=== PATIENT | male | born 1985 | race Caucasian/White ===

== ENCOUNTER 2025-08-31 21:49 | Inpatient (IN) | payer MEDICAID ==
[~2025-08-31] VITALS: Ht 177.8 cm; Wt 110.0 kg
[2025-08-31 22:21] LABS: Hematocrit 40.3 % (41.0-53.0); Hemoglobin 13.6 g/dL (13.5-17.5); Mean Corpuscular Hemoglobin 29.0 pg (28.0-32.0); Mean Corpuscular Volume 85.8 fL (80.0-100.0); Nucleated Red Blood Cells % 0.1 %
[2025-08-31 22:36] LABS: INR 1.07 (0.9-1.15); Partial Thromboplastin Time 29.8 SEC (24.5-34.5); Prothrombin Time 11.3 sec (9.3-11.8)
--- NOTE | 2025-08-31 22:36 | DVH ---
CLINICAL HISTORY: HIGH BLOOD PRESSURE TECHNIQUE: Single view of the chest was obtained. COMPARISON: None FINDINGS: The heart size and pulmonary vasculature are normal. The lungs are clear. IMPRESSION: NO ACUTE CARDIOPULMONARY PROCESS.
[2025-08-31 22:42] LABS: Alanine Aminotransferase 10 U/L (7-40); Albumin 4.4 g/dL (3.2-4.8); Alkaline Phosphatase 56 U/L (46-116); Anion Gap 10 (5-15); BUN/Creatinine Ratio 7.6 (10.0-20.0); Bilirubin, Total 0.4 mg/dL (0.2-1.0); Calcium 8.9 mg/dL (8.7-10.4); Carbon Dioxide 26 mmol/L (20-31); Glucose 100 mg/dL (74-106); Potassium 3.7 mmol/L (3.5-5.1); Sodium 143 mmol/L (136-145); Total Protein 7.0 g/dL (5.7-8.2)
[2025-08-31 22:52] LABS: Blood Urea Nitrogen 9 mg/dL (9-23); Chloride 107 mmol/L (98-107)
[2025-08-31] MEDS: NITROGLYCERIN 0.4 MG SL TAB SL ONE (23:05)
--- NOTE | 2025-08-31 23:13 | ED.PDOC ---
HPI Comments HPI: Poor Historian. 40-year-old male presents to emergency depart for evaluation elevated blood pressure. Patient has known history of hypertension but has been without medication at least for nine months. Patient had a dental appointment yesterday was noted that he was hypertensive. He was sent from the dentist's office to a local ER at [facility] where they prescribed him losartan 50 mg. He says he has been taking the medicine and checking his blood pressure at home however his blood pressure has been greater than 200 despite his medications. Patient has absolutely no symptoms denies any chest pain shortness of breath or even headache or dizziness or nausea or vomiting or any other symptoms. The num bers alarmed him and he decided to seek medical attention regarding the blood pressure numbers on the machine. Patient denies any use of drugs but he does they Past Medical History: Hypertension Past Surgical History: Denies any Vaping. REVIEW OF SYSTEMS: CONSTITUTIONAL: Denies acute: fever, diaphoresis, chills, generalized weakness. HEAD: Denies acute: headache, photophobia Eyes: Denies acute: Double vision, vision loss, eye pain, eye discharge. EARS: Denies acute: tinnitus, hearing loss, ear discharge, ear pain, THROAT: Denies acute: sore throat, swelling, difficulty swallowing , pain with swallowing, change in voice. NECK: Denies acute: neck pain, neck swelling, stiff neck. HEART: Denies acute : chest pain, palpitations, LUNGS: Denies acute: SOB, wheezing, cough, hemoptysis ABDOMEN: Denies acute: abdominal pain, Nausea, Vomiting, diarrhea, melena , hematemesis, hematochezia SKIN: Denies acute: rash, redness, lesions, itchiness. EXTREMITIES: Denies acute: calf pain, numbness, tingling, weakness, denies pain in extremity. Denies acute: Low back pain. Neuro: Denies acute: focal neurological deficit, motor or sensory focal neurological deficit, tremors, seizure like activity, confusion, dizziness, change in mental status, loss of bowel or bladder function, cauda equina like symptoms. : Denies acute: dysuria, hematuria, flank pain, increase in urinary frequency. PSYCH: Denies acute: hallucination, suicidal ideation, homicidal ideation. PHYSICAL EXAM: General: --no------acute distress, awake and alert. Head: normocephalic, atraumatic. Neck: supple, trachea is midline, no swelling. Throat: Normal phonation. Eyes:, no erythema, no purulent discharge, no proptosis, no icterus. Heart: regular rate, regular rhythm, no significant murmur appreciated. Lungs: no apparent respiratory distress, Able to speak in full sentences. No wheezing, no rhonchi, no crackles. No stridors Clear to auscultation bilaterally. Abdomen: non tender to palpation, non distended, soft, no guarding, no rebound, + bowel sounds. Neuro: Awake, Alert, oriented to name, self, situation, follows commands GCS=15. Speech is normal. Skin: no petechia, no purpura, no cyanosis, non-pale, not jaundice. Lower extremities: --no - Pitting edema no deformity, no focal swelling, no calf TTP. Makes eye contact. moves all four extremities. Face: no apparent facial droop. Ambulating in the ED independently. ED COURSE: DISCLAIMER: This medical document was created using an electronic medical record system with voice recognition software and computerized dictation system. Although this document has been carefully reviewed, there might still be some phonetic and typographical errors. Occasional wrong-word or "sound-alike" substitutions may have occurred due to the inherent limitations of voice recognition software. These areas are purely typographical due to imperfections of the software programs and do not reflect any compromise in the patient's medical care. Please read the chart carefully and recognize, using context, where these substitutions have occurred. Chief Complaint: High Blood Pressure Time Seen by MD: 22:25 Reviewed Notes: Medications, Allergies Allergies: Coded Allergies: NO KNOWN ALLERGIES (Unverified , 08/31/25) Information Source: Patient Mode of Arrival: Ambulatory Was a procedure done? Was a procedure done?: No CP Differential Dx Differential Diagnosis: N/A Differential Diagnosis: Other (DDX include renal disease, thyroid disease, electrolyte abnormality, increased salt intake, medications non-compliance, undiagnosed HTN, Hypertensive crisis, hypertensive urgency., drug toxicity.) X-Ray, Labs, Meds, VS Vital Signs Date Time Temp Pulse Resp B/P (MAP) Pulse Ox O2 Delivery O2 Flow Rate FiO2 09/01/25 01:20 171/103 09/01/25 00:50 81 180/110 (133) 99 09/01/25 00:21 86 207/126 08/31/25 23:54 207/126 (153) 08/31/25 23:14 148/109 08/31/25 23:12 148/109 (122) 08/31/25 23:05 184/120 (141) 08/31/25 22:02 80 08/31/25 21:51 97.6 85 14 214/137 98 97.6 Lab Test 08/31/25 22:16 Range/Units White Blood Count 7.2 4.4-10.8 10^3/uL Red Blood Count 4.70 4.5-5.90 10^6/uL Hemoglobin 13.6 13.5-17.5 g/dL Hematocrit 40.3 L 41.0-53.0 % Mean Corpuscular Volume 85.8 80.0-100.0 fL Mean Corpuscular Hemoglobin 29.0 28.0-32.0 pg Mean Corpuscular Hemoglobin Concent 33.8 32.0-36.0 g/dL Red Cell Distribution Width 13.2 11.8-14.3 % Platelet Count 245 140-450 10^3/uL Mean Platelet Volume 6.9 6.9-10.8 fL Neutrophils (%) (Auto) 63.8 37.0-80.0 % Lymphocytes (%) (Auto) 28.5 10.0-50.0 % Monocytes (%) (Auto) 6.7 0.0-12.0 % Eosinophils (%) (Auto) 0.8 0.0-7.0 % Basophils (%) (Auto) 0.2 0.0-2.0 % Neutrophils # (Auto) 4.6 1.6-8.6 10 ^3/uL Lymphocytes # (Auto) 2.0 0.4-5.4 10 ^3/uL Monocytes # (Auto) 0.5 0-1.3 10 ^3/uL Eosinophils # (Auto) 0.1 0-0.8 10 ^3/uL Basophils # (Auto) 0 0-0.2 10 ^3/uL Nucleated Red Blood Cells 0.1 % Prothrombin Time 11.3 9.3-11.8 sec Prothrombin Time INR 1.07 0.9-1.15 Activated Partial Thromboplast Time 29.8 24.5-34.5 SEC Sodium Level 143 136-145 mmol/L Potassium Level 3.7 3.5-5.1 mmol/L Chloride Level 107 98-107 mmol/L Carbon Dioxide Level 26 20-31 mmol/L Anion Gap 10 5-15 Blood Urea Nitrogen 9 9-23 mg/dL Creatinine 1.18 0.700-1.30 mg/dL Glomerular Filtration Rate Calc 79 >90 mL/min BUN/Creatinine Ratio 7.6 L 10.0-20.0 Serum Glucose 100 74-106 mg/dL Calcium Level 8.9 8.7-10.4 mg/dL Total Bilirubin 0.4 0.2-1.0 mg/dL Aspartate Amino Transferase (AST) 19 13-40 U/L Alanine Aminotransferase (ALT) 10 7-40 U/L Alkaline Phosphatase 56 46-116 U/L Troponin I High Sensitivity 3 L </=54 ng/L B-Type Natriuretic Peptide 25.74 0-100 pg/mL Total Protein 7.0 5.7-8.2 g/dL Albumin 4.4 3.2-4.8 g/dL Current Medications Medications (Trade) Dose Ordered Sig/Fina Route Start Time Stop Time Status Last Admin Hydralazine HCl (Apresoline Injection) 5 mg ONCE ONCE IV 08/31/25 22:15 09/01/25 01:02 DC 08/31/25 23:14 Acetaminophen (Tylenol Tablet) 650 mg ONCE ONCE PO 08/31/25 23:15 09/01/25 01:02 DC 08/31/25 23:17 Labetalol HCl (Labetalol HCl) 10 mg ONCE ONCE IV 09/01/25 00:00 09/01/25 01:02 DC 09/01/25 00:21 Nicardipine/ Sodium Chloride 200 ml @ 50 mls/hr Q4H IV 09/01/25 01:00 09/01/25 01:[address] [address] Ph: [phone] DIAGNOSTIC IMAGING Diagnostic Imaging Report : [id number] Signed PATIENT: ANTONY GUADARRAMA ACCT: [id number] UNIT: [id number] : 1985 LOC: ER ROOM / BED: / AGE / SEX: 40 / M ADM STATUS: REG ER SERVICE 99 ORDERING PHYSICIAN: GWENDOLYN ALAN DO PROCEDURE(s): CXRP - CHEST PORTABLE REASON: HIGH BLOOD PRESSURE ORDER NUMBER(s): [id number], ACCESSION NUMBER(s): [id number] CLINICAL HISTORY: HIGH BLOOD PRESSURE TECHNIQUE: Single view of the chest was obtained. COMPARISON: None FINDINGS: The heart size and pulmonary vasculature are normal. The lungs are clear. IMPRESSION: NO ACUTE CARDIOPULMONARY PROCESS. ATED BY: DIPIKA JENNINGS MD DICTATED DATE/TIME: 08/31/252233 SIGNED BY: DIPIKA JENNINGS MD SIGNED DATE/TIME: 08/31/252233 CC: Time of 1ST Reevaluation: 02:09 Reevaluation 1ST: Unchanged Patient Education/Counseling: Diagnosis, Treatment Family Education/Counseling: Other Comments MDM: patient presented with the above HPI.---hypertension evaluation---workup was initiated. patient was found with the above mentioned diagnosis. the following medications were ordered: please refer to order lists of meds and tests obtained by myself Dr. Alan. Patient ED course and VS have been stabilized. Patient has been reassessed in the ED and remained in a stable condition. Pertinent incidental findings were discussed with the patient and/or family. Patient/family voices understanding and is agreeable with plan. Patient has been observed in the ED adequate length of time to insure improvement/stability. Escalation of care considered: Consideration of escalation to observation or admission Patient was given nitroglycerin sublingual and hydralazine IV. Patient was reassessed and he continues to be hypertensive in the 200s systolically. Patient was started on nicardipine drip. Patient was ADMITTED to the medicine team for further evaluation and treatment of their presentation. All the reports of any imaging studies that were ordered by myself were reviewed by myself. Departure 1 Departure Time of Disposition: 23:13 Impression: Primary Impression: Hypertensive crisis Disposition: ADMITTED INPATIENT Admit to: Tele Condition: Guarded Discharged With: Self Critical Care Note Critical Care Time?: Yes (45 min-critical care time only) Heart Score Heart Score: Heart Score Response (Comments) Value History Slightly Suspicious 0 EKG Normal 0 Age <45 0 Risk Factors 1 or 2 risk factors 1 Troponin Normal limit 0 Total 1 GWENDOLYN ALAN DO Aug 31, 2025 23:13
[2025-08-31] MEDS: hydrALAZINE HCL 20 MG/ML VL IV ONE (23:14)
[2025-08-31] MEDS: ACETAMINOPHEN 325 MG TAB PO ONE (23:17)
[2025-09-01] VITALS (54 sets, daily range): BP systolic 121–174; BP diastolic 75–111; PULSE 72–116; RESP 9–91; TEMP 98.3–98.6; O2SAT 93–98
[2025-09-01] MEDS: LABETALOL HCL 20 MG/4 ML VL IV ONE ×2 (00:21→22:36)
[2025-09-01] MEDS ORDERED: ONDANSETRON HCL 4 MG/2 ML VIAL IV PRN (01:45)
[2025-09-01] MEDS ORDERED: NITROGLYCERIN 0.4 MG SL TAB SL PRN (01:45)
[2025-09-01] MEDS ORDERED: MORPHINE SULFATE INJ 2 MG/ml SYRG IV PRN (01:45)
--- NOTE | 2025-09-01 02:08 | DVHHP2 ---
History of Present Illness Reason for Visit: High blood pressure History of Present Illness 40-year-old male presents for evaluation of elevated blood pressure. Patient reports a history of hypertension but has not taken his losartan in over a year. Yesterday he presented for dental work and his blood pressure was elevated in the 200s when his vital signs were checked. He denies chest pain, shortness for breath, dizziness, nausea or headache. Past Medical History Hypertension Past Surgical History Denies Family History Noncontributory Smoke: No (Vaping) ALCOHOL: none Drugs: None Lives: with Family Review of Systems Review of Systems Review of systems are currently negative otherwise addressed in HPI. Allergies: Coded Allergies: NO KNOWN ALLERGIES (Unverified , 08/31/25) Medications Current Medications Medications Dose Ordered Sig/Fina Route Start Time Stop Time Status Last Admin Dose Admin Nicardipine/ Sodium Chloride 200 ml @ 50 mls/hr Q4H IV 09/01/25 01:00 09/01/25 01:20 50 MLS/HR Ondansetron HCl 4 mg Q4HP PRN IV 09/01/25 01:45 Acetaminophen 650 mg Q6HP PRN PO 09/01/25 01:45 Nitroglycerin 0.4 mg Q5MINP PRN SL 09/01/25 01:45 Morphine Sulfate 2 mg Q30M PRN IV 09/01/25 01:45 Exam Vital Signs Vital Signs Date Time Temp Pulse Resp B/P (MAP) Pulse Ox O2 Delivery O2 Flow Rate FiO2 09/01/25 01:20 171/103 09/01/25 00:50 81 99 08/31/25 21:51 97.6 14 97.6 Exam Gen: 40-year-old male in no apparent distress Skin: Warm, dry, normal color and texture, no rash. HEENT: Normocephalic atraumatic, mucous membranes moist and pink. Neck: Cervical and supraclavicular nodes normal without enlargement, trachea is midline, thyroid gland is normal without masses. Pulmonary: Clear to auscultation and percussion bilaterally. Cardiac: Regular rate and rhythm. No murmur Abdomen: Soft, nontender, nondistended, bowel sounds present all 4 quadrants, no guarding, no rigidity, no organomegaly. Extremities: No cyanosis, clubbing, no edema Neuro: Cranial nerves II through XII grossly intact, normal affect and speech, no focal motor deficits. Labs/Xrays ORDERING PHYSICIAN: GWENDOLYN ALAN DO PROCEDURE(s): CXRP - CHEST PORTABLE REASON: HIGH BLOOD PRESSURE ORDER NUMBER(s): [id number], ACCESSION NUMBER(s): [id number] CLINICAL HISTORY: HIGH BLOOD PRESSURE TECHNIQUE: Single view of the chest was obtained. COMPARISON: None FINDINGS: The heart size and pulmonary vasculature are normal. The lungs are clear. IMPRESSION: NO ACUTE CARDIOPULMONARY PROCESS. ATED BY: DIPIKA US MD DICTATED DATE/TIME: 08/31/252233 Labs Test 09/01/25 01:57 08/31/25 22:16 Range/Units White Blood Count 7.2 4.4-10.8 10^3/uL Red Blood Count 4.70 4.5-5.90 10^6/uL Hemoglobin 13.6 13.5-17.5 g/dL Hematocrit 40.3 L 41.0-53.0 % Mean Corpuscular Volume 85.8 80.0-100.0 fL Mean Corpuscular Hemoglobin 29.0 28.0-32.0 pg Mean Corpuscular Hemoglobin Concent 33.8 32.0-36.0 g/dL Red Cell Distribution Width 13.2 11.8-14.3 % Platelet Count 245 140-450 10^3/uL Mean Platelet Volume 6.9 6.9-10.8 fL Neutrophils (%) (Auto) 63.8 37.0-80.0 % Lymphocytes (%) (Auto) 28.5 10.0-50.0 % Monocytes (%) (Auto) 6.7 0.0-12.0 % Eosinophils (%) (Auto) 0.8 0.0-7.0 % Basophils (%) (Auto) 0.2 0.0-2.0 % Neutrophils # (Auto) 4.6 1.6-8.6 10 ^3/uL Lymphocytes # (Auto) 2.0 0.4-5.4 10 ^3/uL Monocytes # (Auto) 0.5 0-1.3 10 ^3/uL Eosinophils # (Auto) 0.1 0-0.8 10 ^3/uL Basophils # (Auto) 0 0-0.2 10 ^3/uL Nucleated Red Blood Cells 0.1 % Prothrombin Time 11.3 9.3-11.8 sec Prothrombin Time INR 1.07 0.9-1.15 Activated Partial Thromboplast Time 29.8 24.5-34.5 SEC Sodium Level 143 136-145 mmol/L Potassium Level 3.7 3.5-5.1 mmol/L Chloride Level 107 98-107 mmol/L Carbon Dioxide Level 26 20-31 mmol/L Anion Gap 10 5-15 Blood Urea Nitrogen 9 9-23 mg/dL Creatinine 1.18 0.700-1.30 mg/dL Glomerular Filtration Rate Calc 79 >90 mL/min BUN/Creatinine Ratio 7.6 L 10.0-20.0 Serum Glucose 100 74-106 mg/dL Calcium Level 8.9 8.7-10.4 mg/dL Total Bilirubin 0.4 0.2-1.0 mg/dL Aspartate Amino Transferase (AST) 19 13-40 U/L Alanine Aminotransferase (ALT) 10 7-40 U/L Alkaline Phosphatase 56 46-116 U/L B-Type Natriuretic Peptide 25.74 0-100 pg/mL Total Protein 7.0 5.7-8.2 g/dL Albumin 4.4 3.2-4.8 g/dL SEPSIS Sepsis Screen Date sepsis recognized/suspect: Aug 31, 2025 Time Sepsis recognized/suspect: 2150 Recent Procedure: No On Antibiotic Therapy: No Respiratory Rate >20: No Heart Rate >90: No Temp<36 C (96.8 F) or >38.3 C: No SBP <90 or MAP <65 mmHG: No New Acute Mental Status Change: No Is the patient on CPAP, BIPAP,: No Physician Orders Chest Portable (08/31/25 22:00) Urinalysis (08/31/25 22:00) Electrocardigram (08/31/25 22:00) Nicardipine 20 Mg/200 Ml (Cardene Iv) (09/01/25 01:00) Troponin-I Hs (09/01/25 01:34) Admit (09/01/25 01:36) Ondansetron Hcl (Zofran) (09/01/25 01:45) Cardiac Diet-2gna,Lofat,Lochol (09/01/25 Breakfast) Echo 2d Mode Cardiac Dop (09/01/25:36) Condition: Critical (09/01/25 01:36) Acetaminophen Tablet (Tylenol Tablet) (09/01/25 01:45) Bedrest With Bathroom Privileg (09/01/25:36) Nitroglycerin Sublingual (Ntrostat Subli (09/01/25 01:45) Morphine Sulfate Injection (09/01/25 01:45) Stat Ekg For Chest Pain (09/01/25:36) Notify Of Changes From Base (09/01/25:36) Bacteriology Teacher For 24 Hours (09/01/25:36) Emergency Dysrhythmia Protocol (09/01/25:36) Rhythm Strips Once Every Shift (09/01/25:36) Oxygen By Nasal Cannula (09/01/25:36) Vital Signs Date Time Temp Pulse Resp B/P (MAP) Pulse Ox O2 Delivery O2 Flow Rate FiO2 09/01/25 01:20 171/103 09/01/25 00:50 81 180/110 (133) 99 09/01/25 00:21 86 207/126 08/31/25 23:54 207/126 (153) 08/31/25 23:14 148/109 08/31/25 23:12 148/109 (122) 08/31/25 23:05 184/120 (141) 08/31/25 22:02 80 08/31/25 21:51 97.6 85 14 214/137 98 97.6 Laboratory Tests Test 08/31/25 22:16 White Blood Count 7.2 10^3/uL (4.4-10.8) Medications Medications Dose Ordered Sig/Fina Route Start Time Stop Time Status Last Admin Dose Admin Acetaminophen 650 mg ONCE ONCE PO 08/31/25 23:15 09/01/25 01:02 DC 08/31/25 23:17 650 MG Hydralazine HCl 5 mg ONCE ONCE IV 08/31/25 22:15 09/01/25 01:02 DC 08/31/25 23:14 5 MG Labetalol HCl 10 mg ONCE ONCE IV 09/01/25 00:00 09/01/25 01:02 DC 09/01/25 00:21 10 MG Nicardipine/ Sodium Chloride 200 ml @ 50 mls/hr Q4H IV 09/01/25 01:00 09/01/25 01:20 50 MLS/HR Assessment/Plan Assessment/Plan Assessment Hypertensive urgency Plan Admit the patient to ICU to the hospitalist Continue nicardipine drip As needed antihypertensives to wean drip to off Resume losartan Continue treatment per orders. Total critical care time excluding procedures performed is 50 minutes. Plan discussed with: Patient My Orders Orders - LILLIANA DAO Procedure Category Date Status Time Troponin-I Hs LAB 09/01/25 In Process 01:34 Admit ADMIT 09/01/25 Transmitted 01:36 Ondansetron Hcl PHA 09/01/25 In Process (Zofran) 01:45 Cardiac DIET 09/01/25 Transmitted Diet-2gna,Lofat,Lochol Breakfast Echo 2d Mode Cardiac US 09/01/25 Logged DOP 01:36 Condition: Critical [facility] 09/01/25 In Process 01:36 Acetaminophen Tablet PHA 09/01/25 In Process (Tylenol Tablet) 01:45 Bedrest With Bathroom [facility] 09/01/25 In Process Privileg 01:36 Nitroglycerin [facility] 09/01/25 In Process Sublingual (Ntrostat 01:45 Morphine Sulfate PHA 09/01/25 In Process Injection 01:45 Stat Ekg For Chest [facility] 09/01/25 In Process Pain 01:36 Notify Md Of Changes [facility] 09/01/25 In Process From Base 01:36 Bacteriology Teacher For [facility] 09/01/25 In Process 24 Hours 01:36 Emergency Dysrhythmia [facility] 09/01/25 In Process Protocol 01:36 Rhythm Strips Once [facility] 09/01/25 In Process Every Shift 01:36 Oxygen By Nasal RT 09/01/25 Transmitted Cannula 01:36 Date of Service: Sep 01, 2025 Billing Provider: LILLIANA DAO Common Visit Codes: [id number] CARE 30-74 MIN LILLIANA DAO Sep 01, 2025 02:08
[2025-09-01] MEDS ORDERED: hydrALAZINE HCL 20 MG/ML VL IV PRN (02:15)
[2025-09-01 02:39] LABS: Triglycerides 75 mg/dL (< 150)
[2025-09-01 02:41] LABS: Cholesterol 196 mg/dL (< 200); HDL Cholesterol 52 mg/dL (40-59)
--- NOTE | 2025-09-01 02:59 | ECG ---
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
[2025-09-01] MEDS: ACETAMINOPHEN 325 MG TAB PO PRN (05:24)
[2025-09-01 07:32] LABS: Urine Protein, UAD Negative (Negative)
[2025-09-01] MEDS: LOSARTAN POTASSIUM 50 MG TAB PO SCH (09:30)
--- NOTE | 2025-09-01 10:20 | DVHPNRES ---
Progress Note Date Seen: Sep 01, 2025 Resident Creating Document: TIFFANY STEINER RESIDENT Medical Necessity Reason Pt with a Central, PICC or Fol: No Subjective Review of Systems Patient is a 40-year-old male with past medical history of hypertension who came to the hospital with chief complaints of elevated blood pressure which was 214/137 on admission. Patient reports having mild right hand tingling but denies any chest pain, shortness of breath, dizziness, nausea, headaches, weakness. Patient states that last year he was admitted due to blood pressure in [facility] and was discharged with a 30 days supply of losartan 50 mg, but states that he did not follow-up with his primary care doctor. Patient also states that on Saturday he went to see his dentist who told him that his blood pressure was 205/ 100, for which patient went to [facility] 2 days ago follow-up with his elevated blood pressure and was given a 30 days supply of losartan 50 mg which he picked up from the pharmacy yesterday and the tablet in the morning. 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 Patient has no new complaints. Today morning nicardipine drip was stopped and patient given losartan 50 mg and amlodipine 10 with the extra dose of losartan 50 mg. Patient is monitored continuously for high blood pressure if blood pressure is still high we will give Coreg. Or PRN labetalol for greater than 170 SBP. Objective vital signs Vital Sign Date Time Temp Pulse Resp B/P (MAP) Pulse Ox O2 Delivery O2 Flow Rate FiO2 09/01/25 10:00 85 09/01/25 10:00 18 97 Room Air* 0 21 09/01/25 09:30 121/84 09/01/25 03:53 98.7 98.7 Total Intake and Output 08/31/25 08/31/25 09/01/25 15:00 23:00 07:00 Intake Total 225 ml Output Total 1200 ml Balance -975 ml medications Current Medications Medications Dose Ordered Sig/Fina Route Start Time Stop Time Status Last Admin Dose Admin Nicardipine/ Sodium Chloride 200 ml @ 50 mls/hr Q4H IV 09/01/25 01:00 09/01/25 05:00 75 MLS/HR Ondansetron HCl 4 mg Q4HP PRN IV 09/01/25 01:45 Acetaminophen 650 mg Q6HP PRN PO 09/01/25 01:45 09/01/25 05:24 650 MG Nitroglycerin 0.4 mg Q5MINP PRN SL 09/01/25 01:45 Morphine Sulfate 2 mg Q30M PRN IV 09/01/25 01:45 Losartan Potassium 50 mg DAILY PO 09/01/25 10:00 09/01/25 09:30 50 MG Examination Patient lying in bed General: Patient alert and oriented in person, place and time. Patient following commands. HEENT: Normocephalic, atraumatic, moist mucous membranes Respiratory/pulmonary: Clear lungs bilaterally, vesicular murmurs present in almost all lung tobin, no associated crackles or wheezes. Cardiovascular: Normal heart sounds S1 and S2 with no associated murmurs Abdomen: Abdomen nondistended, there is no pain to palpation in any of the abdominal quadrants, no palpable masses. Extremities: There is no peripheral edema present at the lower extremities. Peripheral Pulses: 3+ Radial (R). 3+ Radial (L). 3+ Dorsalis pedis (R). 3+ Dorsalis pedis(L) Skin: No rashes or pruritus, there is no sacral edema present at this time. Neurological: Intact cranial nerves with no focal neurologic deficits laboratory and microbiology Laboratory Tests 08/31/25 22:16 Test 08/31/25 22:16 Range/Units Serum Glucose 100 74-106 mg/dL Problem List/Assessment/Plan Problem List/Assessment/Plan Assessment and plan Cardiology Hypertensive urgency -nicardipine drip stopped -labetalol 50 mg, amlodipine 10 mg given -p.r.n. labetalol if SBP greater than 170 -blood pressure continuously monitored - rule out secondary causes of hypertension Dyslipidemia -ASCVD score 7.2% Morbid Obesity- BMI 37.9 -patient counseled on diet, exercise, lifestyle modifications for greater than 18 minutes Goals of care discussed with the patient and family members for more than 29 minutes: Full code status Case discussed with Dr. Steele, family and RN Plan discussed with: Patient, Spouse Date of Service: Sep 01, 2025 Billing Provider: LILLIANA STEELE MD Common Visit Codes: [id number] INP/OBS CARE(HIGH) Secondary Visit Codes: [id number] CARE PLAN 30 MINUTES TIFFANY STEINER RESIDENT Sep 01, 2025 10:20 LILLIANA STEELE MD Sep 02, 2025 12:54
--- NOTE | 2025-09-01 12:45 | DVH ---
ULTRASOUND RENAL CLINICAL INDICATION: Renal arterial hypertension. TECHNIQUE: Real-time sonographic, duplex, and color Doppler images of the kidneys were obtained. FINDINGS: Velocities and resistive indices within normal limits. Bilateral kidneys appear within nor mal limits. No hydronephrosis. IMPRESSION: Normal examination. [<reference, normal RI <.7>]
[2025-09-01] MEDS: LOSARTAN POTASSIUM 50 MG TAB PO ONE (15:27)
[2025-09-02] VITALS (62 sets, daily range): BP systolic 127–177; BP diastolic 71–118; PULSE 68–116; RESP 11–29; TEMP 97.6–98.9; O2SAT 91–98
[2025-09-02 03:05] LABS: Hematocrit 40.2 % (41.0-53.0); Hemoglobin 13.8 g/dL (13.5-17.5); Mean Corpuscular Hemoglobin 29.6 pg (28.0-32.0); Mean Corpuscular Volume 86.3 fL (80.0-100.0); Nucleated Red Blood Cells % 0.1 %
[2025-09-02 03:23] LABS: Alanine Aminotransferase 10 U/L (7-40); Alkaline Phosphatase 56 U/L (46-116); Anion Gap 11 (5-15); BUN/Creatinine Ratio 8.3 (10.0-20.0); Calcium 9.3 mg/dL (8.7-10.4); Carbon Dioxide 24 mmol/L (20-31); Chloride 106 mmol/L (98-107); Sodium 141 mmol/L (136-145)
[2025-09-02 03:24] LABS: Total Protein 6.8 g/dL (5.7-8.2)
[2025-09-02 03:25] LABS: Albumin 4.4 g/dL (3.2-4.8); Bilirubin, Total 0.4 mg/dL (0.2-1.0)
[2025-09-02 03:44] LABS: Blood Urea Nitrogen 8 mg/dL (9-23); Glucose 114 mg/dL (74-106); Potassium 3.2 mmol/L (3.5-5.1)
[2025-09-02] MEDS: POTASSIUM EFFERVESENT TAB 25 MEQ PO ONE (05:57)
[2025-09-02] MEDS: LABETALOL HCL 20 MG/4 ML VL IV ONE (07:00)
[2025-09-02] MEDS: CARVEDILOL 12.5 MG TAB PO SCH (09:31)
[2025-09-02] MEDS: LOSARTAN POTASSIUM 50 MG TAB PO SCH (09:33)
[2025-09-02] MEDS ORDERED: CARVEDILOL 12.5 MG TAB PO SCH (10:00)
--- NOTE | 2025-09-02 11:16 | DVHPNRES ---
Progress Note Date Seen: Sep 02, 2025 Resident Creating Document: TIFFANY STEINER RESIDENT Medical Necessity Reason Pt with a Central, PICC or Fol: No Subjective Review of Systems Patient is a 40-year-old male with past medical history of hypertension who came to the hospital with chief complaints of elevated blood pressure which was 214/137 on admission. Patient reports having mild right hand tingling but denies any chest pain, shortness of breath, dizziness, nausea, headaches, weakness. Patient states that last year he was admitted due to blood pressure in [facility] and was discharged with a 30 days supply of losartan 50 mg, but states that he did not follow-up with his primary care doctor. Patient also states that on Saturday he went to see his dentist who told him that his blood pressure was 205/ 100, for which patient went to [place] 2 days ago follow-up with his elevated blood pressure and was given a 30 days supply of losartan 50 mg which he picked up from the pharmacy yesterday and the tablet in the morning. Past medical history: Hypertension Past surgical history: Denies any surgeries Family history: Reviewed, noncontributory Social history: Patient is ex heavy alcohol drinker, went to rehab 3 years ago and quit drinking 3 years ago, smokes nicotine vape, denies any drug use Lives with: Family Patient seen and examined at bedside. Patient has no new complaints. Patient given losartan 50mg. Started on Nifedipine ER 60mg, And triamterene/hydrochlorothiazide. Patient's blood pressure is to be continuously monitored. Objective vital signs Vital Sign Date Time Temp Pulse Resp B/P (MAP) Pulse Ox O2 Delivery O2 Flow Rate FiO2 09/02/25 09:33 150/101 09/02/25 09:31 89 09/02/25 07:00 25 96 09/02/25 06:00 Room Air* 0 21 09/02/25 04:00 98.4 98.4 Total Intake and Output 09/01/25 09/01/25 09/02/25 15:00 23:00 07:00 Intake Total 220 ml 1000 ml 345 ml Output Total 1420 ml 525 ml Balance 220 ml -420 ml -180 ml medications Current Medications Medications Dose Ordered Sig/Fina Route Start Time Stop Time Status Last Admin Dose Admin Ondansetron HCl 4 mg Q4HP PRN IV 09/01/25 01:45 Acetaminophen 650 mg Q6HP PRN PO 09/01/25 01:45 09/01/25 05:24 650 MG Nitroglycerin 0.4 mg Q5MINP PRN SL 09/01/25 01:45 Morphine Sulfate 2 mg Q30M PRN IV 09/01/25 01:45 Losartan Potassium 100 mg DAILY PO 09/02/25 10:00 09/02/25 09:33 100 MG Amlodipine Besylate 10 mg DAILY PO 09/02/25 10:00 09/02/25 09:32 10 MG Carvedilol 12.5 mg Q12HR PO 09/02/25 08:30 09/02/25 09:31 12.5 MG Atorvastatin Calcium 20 mg HS PO 09/02/25 22:00 UNV Examination Patient lying in bed General: Patient alert and oriented in person, place and time. Patient following commands. HEENT: Normocephalic, atraumatic, moist mucous membranes Respiratory/pulmonary: Clear lungs bilaterally, vesicular murmurs present in almost all lung tobin, no associated crackles or wheezes. Cardiovascular: Normal heart sounds S1 and S2 with no associated murmurs Abdomen: Abdomen nondistended, there is no pain to palpation in any of the abdominal quadrants, no palpable masses. Extremities: There is no peripheral edema present at the lower extremities. Peripheral Pulses: 3+ Radial (R). 3+ Radial (L). 3+ Dorsalis pedis (R). 3+ Dorsalis pedis(L) Skin: No rashes or pruritus, there is no sacral edema present at this time. Neurological: Intact cranial nerves with no focal neurologic deficits laboratory and microbiology Laboratory Tests 09/02/25 02:44 Test 09/02/25 02:44 Range/Units Serum Glucose 114 H 74-106 mg/dL Microbiology Date/Time Source Procedure Growth Status 09/01/25 08:00 Nose MRSA Screen - Final Complete Problem List/Assessment/Plan Problem List/Assessment/Plan Assessment and plan Cardiology Hypertensive urgency -nicardipine drip stopped -labetalol 50 mg, -Started on Nifedipine ER 60mg, And triamterene/hydrochlorothiazide - renal artery duplex was normal - secondary hypertension causes to be ruled out -blood pressure continuously monitored Hypokalemia - given 50 meq potassium Dyslipidemia -ASCVD score 7.2% -Atorvastatin 20mg given Morbid Obesity- BMI 37.9 -patient counseled on diet, exercise, lifestyle modifications for greater than 18 minutes Goals of care discussed with the patient and family members for more than 29 minutes: Full code status Case discussed with Dr. Steele, family and RN Plan discussed with: Patient, Spouse Date of Service: Sep 02, 2025 Billing Provider: LILLIANA STEELE MD Common Visit Codes: [id number] INP/OBS CARE(HIGH) Secondary Visit Codes: 33217-[id number] CARE PLAN 30 MINUTES TIFFANY STEINER RESIDENT Sep 02, 2025 11:16 LILLIANA STEELE MD Sep 04, 2025 12:23
[2025-09-02] MEDS: TRIAMTERENE/HCTZ 37.5/25 MG CAP/TAB PO ONE (15:04)
[2025-09-02] MEDS: ATORVASTATIN 20 MG TAB PO SCH (21:00)
[2025-09-03 00:42] VITALS: BP 166/116; PULSE 96; RESP 18; TEMP 98.3; O2SAT 97
[2025-09-03] MEDS: hydrALAZINE HCL 20 MG/ML VL IV ONE (01:14)
[2025-09-03 02:26] VITALS: BP 154/109; PULSE 84
[2025-09-03 05:09] VITALS: BP 166/111; PULSE 84; RESP 17; TEMP 98.3; O2SAT 97
[2025-09-03 07:03] LABS: Hematocrit 43.0 % (41.0-53.0); Hemoglobin 15.0 g/dL (13.5-17.5); Mean Corpuscular Hemoglobin 29.9 pg (28.0-32.0); Mean Corpuscular Volume 85.8 fL (80.0-100.0); Nucleated Red Blood Cells % 0.0 %
[2025-09-03 07:09] LABS: Chloride 104 mmol/L (98-107); Sodium 140 mmol/L (136-145)
[2025-09-03 07:10] LABS: Anion Gap 12 (5-15); Calcium 9.7 mg/dL (8.7-10.4); Carbon Dioxide 24 mmol/L (20-31)
[2025-09-03 07:13] LABS: Potassium 3.4 mmol/L (3.5-5.1)
[2025-09-03 07:15] LABS: Glucose 90 mg/dL (74-106)
[2025-09-03 07:16] LABS: BUN/Creatinine Ratio 6.7 (10.0-20.0)
[2025-09-03 07:22] LABS: Blood Urea Nitrogen 7 mg/dL (9-23)
[2025-09-03 08:00] VITALS: PULSE 101
[2025-09-03 08:05] VITALS: PULSE 111; RESP 15; O2SAT 96
[2025-09-03 09:00] VITALS: BP 161/120; PULSE 96; RESP 16; TEMP 97.6; O2SAT 98
[2025-09-03] MEDS ORDERED: LABETALOL HCL 20 MG/4 ML VL IV PRN (09:00)
[2025-09-03] MEDS: TRIAMTERENE/HCTZ 37.5/25 MG CAP/TAB PO SCH (10:09)
[2025-09-03] MEDS: POTASSIUM CHL 20MEQ/100ML 100 ML IV ONE (10:11)
[2025-09-03] MEDS ORDERED: ATOR20TA50 PO (10:36)
[2025-09-03] MEDS ORDERED: LOSA-534 PO (10:36)
[2025-09-03] MEDS ORDERED: NIFE1TAB31 PO (10:36)
[2025-09-03] MEDS ORDERED: [UNRECOGNIZED DRUG - CODE] PO (10:36)
--- NOTE | 2025-09-03 11:07 | DVHSR ---
APPROVED REPORT EXAM: Two-dimensional and M-mode echocardiogram with Doppler and color Doppler. Blood Pressure: 132/85 mmHg INDICATION hypertenson RISK FACTORS Obesity: Height: 5'10, Weight: 264 DIMENSIONS LVDd4.3 (3.8-5.7cm)LA (2D)4.1 (1.9-4.0cm)Aortic Root3.3 (2.0-3.7cm) LVDs3.0 (2.5-4.0cm)LA (MM) (1.9-4.0cm)Aortic Cusp Exc2.0 (1.5-2.0cm) EF (%) 60.0 (55-70%)Rt. Atrium4.3 (1.9-4.0cm)Asc. Aorta3.7 cm IVSd1.4 (0.7-1.1cm)RV (D) (1.8-2.4cm) PWd1.3 (0.7-1.1cm) Mitral Valve MitralMitral Stenosis E wave0.57m/sMV Mean GR.mmHg A wave0.97m/sMV Peak GR.mmHg E/A ratio0.62D MVAcm2 DECEL [id number] 1/2 Timems Aortic Valve Aortic ValveAortic Stenosis V11.22m/Raghu Mean GR.5mmHg V21.41m/Raghu Peak GR.8mmHg LVOT Diameter2.2 (1.8-2.4cm)Doppler AVA3.29cm2 Pulmonic Valve V21.02m/s Other Information Technically limited study due to body habitus. Conclusion Good study. Sinus rhythm. Concentric LVH with biatrial enlargement. Mild aortic root enlargement. Valves are normal. EF of 65% with normal RV function. Dopplers unremarkable. No pericardial effusion masses or vegetations.
--- NOTE | 2025-09-03 15:23 | DVHDSRES ---
Discharge Summary Date of Admission Resident Creating Document: TIFFANY STEINER RESIDENT Sep 01, 2025 at 01:36 Date of Discharge: Sep 03, 2025 Admitting Diagnosis Hypertensive Urgency Labs/Diagnostic Data: Laboratory Results Test 09/03/25 05:29 09/02/25 02:44 09/01/25 11:43 09/01/25 06:48 White Blood Count 9.7 10^3/uL (4.4-10.8) Red Blood Count 5.01 10^6/uL (4.5-5.90) Hemoglobin 15.0 g/dL (13.5-17.5) Hematocrit 43.0 % (41.0-53.0) Mean Corpuscular Volume 85.8 fL (80.0-100.0) Mean Corpuscular Hemoglobin 29.9 pg (28.0-32.0) Mean Corpuscular Hemoglobin Concent 34.8 g/dL (32.0-36.0) Red Cell Distribution Width 13.6 % (11.8-14.3) Platelet Count 279 10^3/uL (140-450) Mean Platelet Volume 7.4 fL (6.9-10.8) Neutrophils (%) (Auto) 65.2 % (37.0-80.0) Lymphocytes (%) (Auto) 25.7 % (10.0-50.0) Monocytes (%) (Auto) 7.9 % (0.0-12.0) Eosinophils (%) (Auto) 0.9 % (0.0-7.0) Basophils (%) (Auto) 0.3 % (0.0-2.0) Neutrophils # (Auto) 6.4 10 ^3/uL (1.6-8.6) Lymphocytes # (Auto) 2.5 10 ^3/uL (0.4-5.4) Monocytes # (Auto) 0.8 10 ^3/uL (0-1.3) Eosinophils # (Auto) 0.1 10 ^3/uL (0-0.8) Basophils # (Auto) 0 10 ^3/uL (0-0.2) Nucleated Red Blood Cells 0.0 % Sodium Level 140 mmol/L (136-145) Potassium Level 3.4 mmol/L (3.5-5.1) Chloride Level 104 mmol/L (98-107) Carbon Dioxide Level 24 mmol/L (20-31) Anion Gap 12 (5-15) Blood Urea Nitrogen 7 mg/dL (9-23) Creatinine 1.04 mg/dL (0.700-1.30) Glomerular Filtration Rate Calc 92 mL/min (>90) BUN/Creatinine Ratio 6.7 (10.0-20.0) Serum Glucose 90 mg/dL (74-106) Calcium Level 9.7 mg/dL (8.7-10.4) Magnesium Level 2.1 mg/dL (1.6-2.6) Total Bilirubin 0.4 mg/dL (0.2-1.0) Aspartate Amino Transferase (AST) 14 U/L (13-40) Alanine Aminotransferase (ALT) 10 U/L (7-40) Alkaline Phosphatase 56 U/L (46-116) Total Protein 6.8 g/dL (5.7-8.2) Albumin 4.4 g/dL (3.2-4.8) Hemoglobin A1c 4.8 % A1C (<5.7) Urine Color Colorless (Yellow) Urine Clarity Clear (Clear) Urine pH 7.0 (5.0-9.0) Urine Specific [place] 1.006 (1.001-1.035) Urine Protein Negative (Negative) Urine Ketones 1+ (Negative) Urine Blood Negative /uL (Negative) Urine Nitrite Negative (Negative) Urine Bilirubin Negative (Negative) Urine Urobilinogen Normal mg/dL (Negative) Urine Leukocyte Esterase Negative /uL (Negative) Urine RBC <1 /hpf (0 - 3) Urine Microscopic WBC < 1 /HPF (0-3) Urine Squamous Epithelial Cells None seen /hpf (<5) Urine Bacteria None seen /hpf (None Seen) Urine Glucose Normal mg/dL (Normal) Test 09/01/25 01:57 08/31/25 22:16 Troponin I High Sensitivity 4 ng/L (</=54) Triglycerides Level 75 mg/dL (< 150) Cholesterol Level 196 mg/dL (< 200) LDL Cholesterol 136 mg/dL (< 100) HDL Cholesterol 52 mg/dL (40-59) Thyroid Stimulating Hormone (TSH) 1.83 uIU/mL (0.55-4.78) Prothrombin Time 11.3 sec (9.3-11.8) Prothrombin Time INR 1.07 (0.9-1.15) Activated Partial Thromboplast Time 29.8 SEC (24.5-34.5) B-Type Natriuretic Peptide 25.74 pg/mL (0-100) Other Laboratory Tests 09/03/25 05:29 Brief Hx & Hospital Course: Patient is a 40-year-old male with past medical history of hypertension who came to the hospital with chief complaints of elevated blood pressure which was 214/137 on admission. Patient reports having mild right hand tingling but denies any chest pain, shortness of breath, dizziness, nausea, headaches, weakness. Patient states that last year he was admitted due to blood pressure in [facility] and was discharged with a 30 days supply of losartan 50 mg, but states that he did not follow-up with his primary care doctor. Patient also states that on Saturday he went to see his dentist who told him that his blood pressure was 205/ 100, for which patient went to [place] 2 days ago follow-up with his elevated blood pressure and was given a 30 days supply of losartan 50 mg which he picked up from the pharmacy yesterday and the tablet in the morning. Past medical history: Hypertension Past surgical history: Denies any surgeries Family history: Reviewed, noncontributory Social history: Patient is ex heavy alcohol drinker, went to rehab 3 years ago and quit drinking 3 years ago, smokes nicotine vape, denies any drug use Lives with: Family Brief Hospital course: Patient came to the hospital with elevated blood pressure which was 214/137. Patient was given nicardipine drip which was later stopped. Labetalol 50 mg, started on nifedipine ER 60 mg, triamterene/hydrochlorothiazide, renal artery duplex was ordered and was normal. Patient's blood pressure was continuously monitored. Patient had hypokalemia for which IV 50 mEq potassium was given. Patient had dyslipidemia with ASCVD score of 7.2 percentage, for which atorvastatin 20 mg given patient has morbid obesity with BMI 37.9 for which patient was counseled on diet, exercise, lifestyle modifications for greater than 18 minutes. Patient's blood pressure was still high, but he wanted to leave AMA. Patient encouraged to stay for further treatment and management but insisted on leaving AMA, verbalized understanding of risks and benefits of leaving AMA, signed AMA form and left. Patient advised to take medications as prescribed, follow-up with his PCP. Operations or Procedures ORDERING PHYSICIAN: TIFFANY STEINER PROCEDURE(s): RENARTLMTD - RENAL ARTERY LMTD REASON: , ORDER NUMBER(s): [id number], ACCESSION NUMBER(s): [id number] ULTRASOUND RENAL CLINICAL INDICATION: Renal arterial hypertension. TECHNIQUE: Real-time sonographic, duplex, and color Doppler images of the kidneys were obtained. FINDINGS: Velocities and resistive indices within normal limits. Bilateral kidneys appear within normal limits. No hydronephrosis. IMPRESSION: Normal examination. [<reference, normal RI <.7>] ATED BY: BORIS GOTTLIEB MD DICTATED DATE/TIME: 09/01/25 1243 ORDERING PHYSICIAN: GWENDOLYN ALAN DO PROCEDURE(s): CXRP - CHEST PORTABLE REASON: HIGH BLOOD PRESSURE ORDER NUMBER(s): [id number], ACCESSION NUMBER(s): [id number] CLINICAL HISTORY: HIGH BLOOD PRESSURE TECHNIQUE: Single view of the chest was obtained. COMPARISON: None FINDINGS: The heart size and pulmonary vasculature are normal. The lungs are clear. IMPRESSION: NO ACUTE CARDIOPULMONARY PROCESS. ATED BY: DIPIKA JENNINGS MD DICTATED DATE/TIME: 08/31/252233 ORDERING PHYSICIAN: GWENDOLYN ALAN DO PROCEDURE(s): CXRP - CHEST PORTABLE REASON: HIGH BLOOD PRESSURE ORDER NUMBER(s): [id number], ACCESSION NUMBER(s): [id number] CLINICAL HISTORY: HIGH BLOOD PRESSURE TECHNIQUE: Single view of the chest was obtained. COMPARISON: None FINDINGS: The heart size and pulmonary vasculature are normal. The lungs are clear. IMPRESSION: NO ACUTE CARDIOPULMONARY PROCESS. ATED BY: DIPIKA JENNINGS MD DICTATED DATE/TIME: 08/31/252233 Condition at Discharge: Undetermined Final Diagnosis/Problems List Hypertensive urgency Hypokalemia Dyslipidemia Morbid Obesity- BMI 37.8 Discharge Disposition: AMA Discharge Instruct/Medications Scheduled Atorvastatin Calcium (Atorvastatin Calcium), 20 MG PO HS Hydrochlorothiazide W/Triamter (Hctz/Triamterene), 1 CAP PO DAILY Losartan Potassium (Losartan Potassium), 100 MG PO DAILY Nifedipine (Nifedipine Er), 60 MG PO DAILY Discharge Statement: "Patient was advised to return to the ER or call 911 if any headaches, dizziness, shortness of breath, chest pain, abdominal pain, bleeding, fevers, or worsening of medical condition. Patient was counseled about treatment plan, medications, possible side effects, patientverbalized understanding. All questions were answered to the best of my ability. This discharge took greater then 30 minutes in planning, reviewing documentation, counseling the patient, and discussing with other team members." ASSESSMENT ASSESSMENT Assessment TIFFANY STEINER RESIDENT Sep 03, 2025 15:23
--- NOTE | 2025-09-03 23:53 | DVHPN2 ---
Subjective DOS: 09/03/2025 Patient seen and examined at bedside. Breathing comfortably on room air. Overnight events reviewed. Changes from previous H/P or p: No Changes Objective Vitals Vital Signs Date Time Temp Pulse Resp B/P (MAP) Pulse Ox O2 Delivery O2 Flow Rate FiO2 09/03/25 10:09 161/120 09/03/25 09:00 97.6 96 16 98 97.6 09/03/25 08:05 Room Air* 0 21 Intake/Output Intake and Output 09/03/25 07:00 Intake Total 1600 ml Output Total 1201 ml Balance 399 ml Intake Oral 1600 ml Output Urine Total 1200 ml Stool Total 1 ml # Voids 3 Exam Gen.: Patient lying in bed in no apparent distress. Breathing on room air. Head: Normocephalic, atraumatic. Eyes: EOMI/PERRLA. Ears: Normal hearing. Normal anatomy. Neck/trachea: Trachea midline, supple. Nose: Normal external anatomy. Mouth: Moist mucous membranes. Chest: Decreased air entry bilaterally. No wheezing or rhonchi. Cardiovascular: Positive S1, positive S2. Regular rate and rhythm. Abdomen: Positive bowel sounds in all 4 quadrants. Soft, non-tender, non- distended. : Deferred. Rectal: Deferred. Skin: Warm, dry. Intact. Extremities: 2+ radial pulses bilaterally. No lower extremity edema. Neuro: Awake, alert, oriented x3. No gross motor or sensory deficits. Cranial nerves II through XII intact. Gait not assessed. Laboratory Results Laboratory Tests 09/03/25 05:29 Chemistry Test 09/03/25 05:29 Calcium Level 9.7 mg/dL (8.7-10.4) Urinalysis Test 09/01/25 06:48 Urine Color Colorless (Yellow) Urine Clarity Clear (Clear) Urine pH 7.0 (5.0-9.0) Urine Specific [place] 1.006 (1.001-1.035) Urine Protein Negative (Negative) Urine Ketones 1+ (Negative) H Urine Blood Negative /uL (Negative) Urine Nitrite Negative (Negative) Urine Bilirubin Negative (Negative) Urine Urobilinogen Normal mg/dL (Negative) Urine Leukocyte Esterase Negative /uL (Negative) Urine RBC <1 /hpf (0 - 3) Urine Microscopic WBC < 1 /HPF (0-3) Urine Squamous Epithelial Cells None seen /hpf (<5) Urine Bacteria None seen /hpf (None Seen) Urine Glucose Normal mg/dL (Normal) Microbiology Microbiology Date/Time Source Procedure Growth Status 09/01/25 08:00 Nose MRSA Screen - Final Complete Assessment/Plan Assessment/Plan Impression: Hypertensive urgency Hypokalemia Morbid obesity BMI 37.9 Plan: On room air Supplemental oxygen PRN Titrate to keep O2 sats above 92%. Blood pressure control On atorvastatin for dyslipidemia Monitor renal function. Monitor electrolytes. Supplement as necessary. Potassium supplementation Monitor ins and outs. Recommend diet and lifestyle modifications for weight reduction Obesity complicates all care Patient is stable for discharge from the pulmonary standpoint. DVT prophylaxis. Prognosis: Guarded given patient's multiple co-morbidities. Rest of plan per hospitalist and other consultants. Thank you for allowing me to participate in this patient's care. Further recommendations will depend on the patient's clinical course. Please do not hesitate to contact me if you have any questions or concerns. This medical document was created using an electronic medical record system with [email or web address] computerized dictation system. Although these documentations are being carefully reviewed, there may still be some phonetic and typographical changes. The errors are purely typographical, due to imperfection on the software program, and do not reflect any compromise in the patient's medical care. Plan discussed with: Patient, Other (RN) Visit Coding Pulmonary Billing Provider: JERMAINE COTO MD Date of Service if different f: Sep 03, 2025 Common Visit Codes: [id number] INP/OBS CARE(HIGH) JERMAINE COTO MD Sep 03, 2025 23:53
== END 2025-09-03 12:08 | disposition left against medical advice (07) | DRG 199 ==
LOC: ER 21:49 → OVERFLOW 09-01 01:36 → ICU CENTRL 09-01 08:00 → TELE-CENTR 09-02 18:17
PROVIDERS: ADMIT Internal Medicine Pulmonary Disease; ATTEND Internal Medicine Pulmonary Disease
DX: I16.0 Hypertensive urgency (principal); E66.01 Morbid (severe) obesity due to excess calories; E78.5 Hyperlipidemia, unspecified; Z53.29 Procedure and treatment not carried out because of patient's decision for other reasons; E87.6 Hypokalemia; Z68.37 Body mass index [BMI] 37.0-37.9, adult; Z79.899 Other long term (current) drug therapy
CPT/HCPCS: 36415; 71045; 80048; 80053; 80061; 81001; 82088; 83036; 83735; 83835; 83880; 84244; 84443; 84484; 85025; 85610; 85730; 87081; 93005; 93306; 93976; 96374; 96375; 99291; G0378; J3480